=== PATIENT | female | born 1935 | race Caucasian/White ===

== ENCOUNTER → 2016-07-22 | Outpatient (REF) ==
[~2016-07-22] MED LIST: BUMETANIDE1 MG PO; CALCIUM1 CAP PO; CALTRATE-600 W600 MG PO; CENTRUM SILVER1 TA1 PO; CEPHALEXIN500 M1 PO; CLONAZEPAM1 M1 PO; COUMADIN 5MG5 MG/TAB PO; COUMADIN 6MG6 MG/TAB PO; COUMADIN4 MG; COUMADIN5 MG PO; COUMADIN6 MG PO; CYMBALTA 60MG60 MG PO; DARVOCET N; DIOVAN160 MG PO; DIOVAN320 MG PO; EVISTA; KLONOPIN 1MG1 MG PO; LABETALOL100 MG PO; LASIX 20MG TABL20 MG PO; LORTAB 5/500 501 TAB PO; MACROBID 1100 MG/CAP; MULTIPLE VITAMI1 CAP PO; NORCO 325 MG-51 TAB PO; NORVASC 5MG5 MG/TAB PO; PAXIL 30MG30 MG PO; RELAFEN 50500 MG/TAB PO; TOPROL XL50 MG PO; TYLENOL 325MG325 MG PO; TYLENOL EXTRA500 M1 PO; ULTRAM 50MG TAB50 MG PO; ULTRAM50 MG PO; VOLTAREN GEL 1%1 TU TP; VOLTAREN GEL1% TP
[2016-07-22 14:28] LABS: INR 2.5 (0.8-3.0); PROTHROMBIN TIME 28.2 SECONDS (9.7-12.8)
== END ==
LOC: ZLAB.STJ 14:16
PROVIDERS: Internal Medicine
DX: Z01.89 Encounter for other specified special examinations (principal)

== ENCOUNTER → 2017-01-02 | Outpatient (REF) ==
[2017-01-02 15:42] LABS: PH 5 (5-8); SQUAMOUS EPITHELIAL 0-2 /hpf; URINE APPEARANCE Hazy; URINE BACTERIA Rare /hpf; URINE BILIRUBIN Negative (NEGATIVE); URINE BLOOD Negative (NEGATIVE); URINE COLOR Yellow; URINE GLUCOSE Negative (NEGATIVE); URINE KETONE Negative (NEGATIVE); URINE UROBILINOGEN Negative (NEGATIVE)
[2017-01-02 15:43] LABS: URINE WBC >50 /hpf
== END ==
LOC: ZLAB.STJ 15:25
PROVIDERS: Internal Medicine
DX: Z01.89 Encounter for other specified special examinations (principal)

== ENCOUNTER → 2017-02-11 | Outpatient (REF) ==
[2017-02-11 17:12] LABS: HYALINE CAST >12 /lpf; PH 5 (5-8); SQUAMOUS EPITHELIAL 0-2 /hpf; URINE APPEARANCE Cloudy; URINE BACTERIA Rare /hpf; URINE BILIRUBIN Negative (NEGATIVE); URINE BLOOD Negative (NEGATIVE); URINE COLOR Yellow; URINE GLUCOSE Negative (NEGATIVE); URINE KETONE Negative (NEGATIVE); URINE UROBILINOGEN Negative (NEGATIVE)
[2017-02-11 17:23] LABS: URINE WBC >50 /hpf
== END ==
LOC: ZLAB.STJ 16:54
PROVIDERS: Internal Medicine
DX: Z02.89 Encounter for other administrative examinations (principal)

== ENCOUNTER → 2017-03-04 | Outpatient (REF) ==
[2017-03-04 14:23] LABS: PH 5 (5-8); SQUAMOUS EPITHELIAL None Seen /hpf; URINE APPEARANCE Hazy; URINE BACTERIA Rare /hpf; URINE BILIRUBIN Negative (NEGATIVE); URINE BLOOD Negative (NEGATIVE); URINE COLOR Yellow; URINE GLUCOSE Negative (NEGATIVE); URINE KETONE Negative (NEGATIVE); URINE RBC 0-2 /hpf; URINE UROBILINOGEN Negative (NEGATIVE)
== END ==
LOC: ZLAB.STJ 13:54
PROVIDERS: Internal Medicine
DX: Z02.89 Encounter for other administrative examinations (principal)

== ENCOUNTER → 2017-05-31 | Outpatient (REF) ==
[2017-05-31 14:30] LABS: HYALINE CAST >12 /lpf; MUCOUS Present /lpf; PH 5 (5-8); SQUAMOUS EPITHELIAL 0-2 /hpf; URINE APPEARANCE Cloudy; URINE BACTERIA Occasional /hpf; URINE BILIRUBIN Negative (NEGATIVE); URINE BLOOD Negative (NEGATIVE); URINE COLOR Amber; URINE GLUCOSE Negative (NEGATIVE); URINE KETONE Negative (NEGATIVE); URINE LEUKOCYTE ESTERASE 3+ (NEGATIVE); URINE PROTEIN(semi-quant) 1+ (NEGATIVE); URINE UROBILINOGEN Negative (NEGATIVE)
[2017-05-31 14:31] LABS: URINE WBC >50 /hpf
[2017-05-31 14:35] LABS: COLLECTION METHOD CLEAN CATCH
== END ==
LOC: ZLAB.STJ 14:18
PROVIDERS: Internal Medicine
DX: N39.0 Urinary tract infection, site not specified (principal)

== ENCOUNTER → 2017-06-12 | Outpatient (REF) ==
[2017-06-12 10:25] LABS: COLLECTION METHOD CLEAN CATCH
[2017-06-12 10:36] LABS: PH 6 (5-8); SQUAMOUS EPITHELIAL None Seen /hpf; URINE APPEARANCE Clear; URINE BACTERIA None Seen /hpf; URINE BILIRUBIN Negative (NEGATIVE); URINE BLOOD Negative (NEGATIVE); URINE COLOR Yellow; URINE GLUCOSE Negative (NEGATIVE); URINE KETONE Negative (NEGATIVE); URINE LEUKOCYTE ESTERASE Negative (NEGATIVE); URINE PROTEIN(semi-quant) Negative (NEGATIVE); URINE RBC 0-2 /hpf; URINE UROBILINOGEN Negative (NEGATIVE); URINE WBC 0-2 /hpf
== END ==
LOC: ZLAB.STJ 10:19
PROVIDERS: Internal Medicine
DX: Z01.89 Encounter for other specified special examinations (principal)

== ENCOUNTER → 2017-07-24 | Outpatient (REF) ==
[2017-07-24 14:28] LABS: COLLECTION METHOD CLEAN CATCH
[2017-07-24 14:56] LABS: PH 6 (5-8); SQUAMOUS EPITHELIAL None Seen /hpf; URINE APPEARANCE Hazy; URINE BACTERIA Rare /hpf; URINE BILIRUBIN Negative (NEGATIVE); URINE BLOOD Negative (NEGATIVE); URINE COLOR Yellow; URINE GLUCOSE Negative (NEGATIVE); URINE KETONE Negative (NEGATIVE); URINE LEUKOCYTE ESTERASE 3+ (NEGATIVE); URINE NITRATE Positive (NEGATIVE); URINE PROTEIN(semi-quant) Negative (NEGATIVE); URINE UROBILINOGEN Negative (NEGATIVE); URINE WBC >50 /hpf
== END ==
LOC: ZLAB.STJ 14:28
PROVIDERS: Internal Medicine
DX: N39.8 Other specified disorders of urinary system (principal)

== ENCOUNTER → 2017-08-19 | Outpatient (CLI) | payer MEDICARE, BC | LOC: COL.RAD 06:55 | DX: Z87.440 Personal history of urinary (tract) infections (principal) ==

== ENCOUNTER → 2018-10-06 | Outpatient (CLI) | payer MEDICARE, BC | LOC: COL.RAD 08:56 | DX: M41.86 Other forms of scoliosis, lumbar region (principal); M51.16 Intervertebral disc disorders with radiculopathy, lumbar region; M48.061 Spinal stenosis, lumbar region without neurogenic claudication ==

== ENCOUNTER → 2019-02-22 | Outpatient (CLI) | payer MEDICARE, BC ==
[2019-02-22 10:38] LABS: BASO # 0.1 (0.0-0.2); BASO % 1.4 % (0.0-2.0); EOS # 0.9 (0.0-0.7); EOS % 13.5 % (0-4.0); GRAN # 3.5 (1.4-6.5); GRAN % 54.8 % (42.2-75.2); HEMATOCRIT 44.4 % (37.0-47.0); HEMOGLOBIN 14.8 g/dl (12.5-16.0); LYMPH # 1.4 (1.2-3.4); LYMPH % 21.5 % (20.0-51.0); MEAN CELL VOLUME 91 fl (80.0-100.0); MEAN CORPUSCULAR HEMOGLOBIN 30 pg (27.0-31.0); MEAN CORPUSCULAR HGB CONC 33 g/dl (33.0-37.0); MEAN PLATELET VOLUME 10.1 fl (7.4-10.4); MONO # 0.5 (0.1-0.6); MONO % 8.5 % (1.7-9.3); PLATELET COUNT 226 K/mm3 (130-400); RED BLOOD COUNT 4.88 M/mm3 (4.10-5.30); REDCELL DISTRIBUTION WIDTH-CV 13.8 % (11.5-14.5)
[2019-02-22 11:01] LABS: ALBUMIN 4.5 gm/dL (3.5-5.0); BILIRUBIN,TOTAL 0.5 mg/dL (0.0-1.0); CALCIUM 9.2 mg/dL (8.4-10.2); CHOLESTEROL RISK RATIO 2.6; CREATININE, serum 0.86 (0.52-1.25); POTASSIUM 5.2 mmol/L (3.4-5.0); TOTAL PROTEIN 7.3 gm/dL (6.4-8.2)
[2019-02-22 11:31] LABS: THYROID STIMULATING HORMONE 2.25 uIU/mL (0.465-4.680)
== END ==
LOC: COL.LAB 10:23 → ZLAB.STJ 10:23
PROVIDERS: Internal Medicine
DX: I12.9 Hypertensive chronic kidney disease with stage 1 through stage 4 chronic kidney disease, or unspecified chronic kidney disease (principal); N18.9 Chronic kidney disease, unspecified; E78.5 Hyperlipidemia, unspecified; D64.9 Anemia, unspecified; E56.9 Vitamin deficiency, unspecified; E03.9 Hypothyroidism, unspecified

== ENCOUNTER → 2019-03-04 | Outpatient (CLI) | payer MEDICARE, BC | LOC: ZLAB.STJ 13:54 → ZCOL.LAB 13:54 | DX: E87.5 Hyperkalemia (principal) ==

== ENCOUNTER → 2019-10-18 | Outpatient (CLI) | payer MEDICARE, BC | LOC: ZCOL.LAB 17:43 | DX: N39.0 Urinary tract infection, site not specified (principal); R82.71 Bacteriuria ==

== ENCOUNTER → 2020-03-21 | Outpatient (CLI) | payer MEDICARE, BC ==
[2020-03-22 03:48] LABS: BASO # 0.1 (0.0-0.2); BASO % 1.4 % (0.0-2.0); EOS # 0.7 (0.0-0.7); EOS % 12.1 % (0-4.0); GRAN # 3.6 (1.4-6.5); GRAN % 60.6 % (42.2-75.2); HEMATOCRIT 38.8 % (37.0-47.0); HEMOGLOBIN 12.1 g/dl (12.5-16.0); LYMPH % 16.2 % (20.0-51.0); MEAN CELL VOLUME 97 fl (80.0-100.0); MEAN CORPUSCULAR HEMOGLOBIN 30 pg (27.0-31.0); MEAN CORPUSCULAR HGB CONC 31 g/dl (33.0-37.0); MEAN PLATELET VOLUME 10.5 fl (7.4-10.4); MONO # 0.6 (0.1-0.6); MONO % 9.5 % (1.7-9.3); PLATELET COUNT 219 K/mm3 (130-400); RED BLOOD COUNT 4.02 M/mm3 (4.10-5.30)
[2020-03-22 04:00] LABS: ALBUMIN 3.6 gm/dL (3.5-5.0); BILIRUBIN,TOTAL 0.4 mg/dL (0.0-1.0); CALCIUM 9.3 mg/dL (8.4-10.2); CREATININE, serum 1.16 (0.52-1.25); POTASSIUM 5.1 mmol/L (3.4-5.0)
[2020-03-22 04:30] LABS: THYROID STIMULATING HORMONE 1.67 uIU/mL (0.465-4.680)
== END ==
LOC: ZCOL.LAB 20:48
PROVIDERS: Internal Medicine
DX: Z13.29 Encounter for screening for other suspected endocrine disorder (principal); D64.9 Anemia, unspecified; I10 Essential (primary) hypertension; Z20.828 Contact with and (suspected) exposure to other viral communicable diseases

== ENCOUNTER → 2020-04-24 | Outpatient (CLI) | payer MEDICARE, BC | LOC: ZLAB.STJ 13:04 | DX: E87.5 Hyperkalemia (principal); I10 Essential (primary) hypertension ==

== ENCOUNTER 2021-04-13 17:36 | Inpatient (IN) | payer MEDICARE, BC ==
[~2021-04-13] VITALS: Ht 157.5 cm; Wt 72.6 kg
[~2021-04-13 17:36] MED LIST changes: +CALCIUM 600MG+D1 TAB PO; -CALCIUM1 CAP PO; -LABETALOL100 MG PO; -MULTIPLE VITAMI1 CAP PO; +MULTIPLE VITAMI1 TA5 PO; +NORMODYNE200 MG PO
[2021-04-13 17:51] LABS: COLLECTION METHOD CLEAN CATCH
[2021-04-13 18:06] LABS: MUCOUS Present /lpf; PH 5 (5-8); SQUAMOUS EPITHELIAL 0-2 /hpf; URINE APPEARANCE Cloudy; URINE BACTERIA Many /hpf; URINE BILIRUBIN Negative (NEGATIVE); URINE BLOOD 1+ (NEGATIVE); URINE COLOR Amber; URINE GLUCOSE Negative (NEGATIVE); URINE KETONE Trace (NEGATIVE); URINE LEUKOCYTE ESTERASE Trace (NEGATIVE); URINE NITRATE Negative (NEGATIVE); URINE PROTEIN(semi-quant) Negative (NEGATIVE)
[2021-04-13 18:09] LABS: BASO # 0.1 K/mm3 (0.0-0.2); BASO % 0.3 % (0.0-2.0); EOS % 0.1 % (0-4.0); GRAN # 12.8 K/mm3 (1.4-6.5); GRAN % 86.8 % (42.2-75.2); HEMOGLOBIN 11.1 g/dl (12.5-16.0); LYMPH # 0.9 K/mm3 (1.2-3.4); LYMPH % 6.4 % (20.0-51.0); MEAN CELL VOLUME 86 fl (80.0-100.0); MEAN CORPUSCULAR HEMOGLOBIN 28 pg (27.0-31.0); MEAN CORPUSCULAR HGB CONC 33 g/dl (33.0-37.0); MEAN PLATELET VOLUME 10.5 fl (7.4-10.4); MONO # 0.9 K/mm3 (0.1-0.6); MONO % 5.9 % (1.7-9.3); PLATELET COUNT 169 K/mm3 (130-400); RED BLOOD COUNT 3.93 M/mm3 (4.10-5.30)
[2021-04-13 18:14] LABS: HEMATOCRIT 33.6 % (37.0-47.0)
[2021-04-13 18:25] LABS: ALBUMIN 2.9 gm/dL (3.4-4.8); BILIRUBIN,TOTAL 0.5 mg/dL (0.2-1.2); CALCIUM 8.6 mg/dL (8.4-10.2); CREATININE, serum 2.22 mg/dL (0.57-1.11); TOTAL PROTEIN 5.8 gm/dL (6.2-8.1)
[2021-04-13 18:35] LABS: INR 8.9 (0.8-3.0); PROTHROMBIN TIME 100.4 SECONDS (9.7-12.8)
[2021-04-13 18:37] LABS: TROPONIN-I 0.081 ng/mL (0.00-0.033)
[2021-04-13] MEDS ORDERED: PRINIVIL40 MG PO (20:43)
[2021-04-13] MEDS ORDERED: NORVASC 5MG5 MG/TAB PO (20:44)
[2021-04-13] MEDS ORDERED: PEPCID 20MG TAB20 MG PO (20:44)
[2021-04-13 22:03] VITALS: BP 82/46; PULSE 75; TEMP 98.2
--- NOTE | 2021-04-13 23:42 | NUR ---
Pt. arrived to the floor at 2210. Pt. is A&OX3, assessment complete. INT to rt. ac patent, IV fluids infusing per orders. Pt. denies pain or other needs, call light within reach.
[2021-04-14] VITALS (7 sets, daily range): BP systolic 100–155; BP diastolic 34–67; PULSE 62–100; TEMP 97.9–98.4
[2021-04-14 08:02] LABS: BASO % 0.4 % (0.0-2.0); EOS # 0.1 K/mm3 (0.0-0.7); EOS % 1.2 % (0-4.0); GRAN % 83.8 % (42.2-75.2); LYMPH # 0.8 K/mm3 (1.2-3.4); LYMPH % 7.2 % (20.0-51.0); MEAN CELL VOLUME 86 fl (80.0-100.0); MEAN CORPUSCULAR HGB CONC 34 g/dl (33.0-37.0); MONO # 0.8 K/mm3 (0.1-0.6); PLATELET COUNT 150 K/mm3 (130-400); RED BLOOD COUNT 3.26 M/mm3 (4.10-5.30); REDCELL DISTRIBUTION WIDTH-CV 15.1 % (11.5-14.5)
[2021-04-14 08:05] LABS: HEMATOCRIT 28.1 % (37.0-47.0); HEMOGLOBIN 9.4 g/dl (12.5-16.0); MEAN CORPUSCULAR HEMOGLOBIN 29 pg (27.0-31.0)
[2021-04-14 08:07] LABS: INR 2.1 (0.8-3.0); PROTHROMBIN TIME 23.5 SECONDS (9.7-12.8)
[2021-04-14 08:27] LABS: CREATININE, serum 1.6 mg/dL (0.57-1.11); POTASSIUM 3.5 mmol/L (3.5-4.5)
--- NOTE | 2021-04-14 10:40 | NUR ---
PT ALERT, ORIENTED TO SELF, LOCATION, AND SITUATION. DISORIENTED TO TIME. PT HAS HEART MURMUR AUSCULTATED. PT HAS BILATERAL UPPER EXTREMITIY EDEMA, NON-PITTING. PT PULSES 2+ IN ALL EXTREMITIES. PT BASES DIMINISHED BILATERALLY, UPPER LOBES CLEAR TO AUSCULTATION. PT CALL LIGHT WITHIN REACH, NO OTHER NEEDS AT THIS TIME.
--- NOTE | 2021-04-14 10:42 | NUR ---
BECKIE MURPHY, BILLIARD TABLE MECHANIC AT [facility] CALLED FOR UPDATE ON PT. PH([phone]) STATES POINT OF CONTACT FOR DISCHARGE PLANNING.
--- NOTE | 2021-04-14 10:48 | NUR ---
NOTED SPO2 CHARTED AT 90%, RECHECKED AT THIS TIME. 94% ON ROOM AIR.
--- NOTE | 2021-04-14 14:20 | NUR ---
NOTIFIED CHARGE NURSE OF POTENTIAL IV INFILTRATION. CHARGE NURSE ASSESSED SITE AND REDRESSED, NO INFILTRATION NOTED AT THIS TIME.
--- NOTE | 2021-04-14 16:38 | NUR ---
DR. RAZA NOTIFIED FOR CONSULT. RECEIVED VERBAL INSTRUCTIONS FOR OUTPATIENT FOLLOW UP, NO FURTHER ORDERS RECEIVED.
--- NOTE | 2021-04-14 17:00 | NUR ---
Pt continuing on plan of care. Pt confusion noted this AM, resolved throughout shift to orientedx4. Pt neuro checks performed per orders, no significant changes noted through shift. Pt vital signs remained stable this shift. Pt able to call for needs. Pt ambulates to bathroom SBA with walker.
[2021-04-14 17:02] LABS: INR 1.3 (0.8-3.0); PROTHROMBIN TIME 14.3 SECONDS (9.7-12.8)
--- NOTE | 2021-04-14 20:30 | NUR ---
Pt. sitting up in bed at this time. Pt. is A&OX3, at this time. Shift assessment complete. INT to lt. wrist patent. Pt. denies pain or other needs, call light within reach.
[2021-04-15] VITALS (8 sets, daily range): BP systolic 95–174; BP diastolic 58–82; PULSE 78–100; TEMP 98.1–98.8
[2021-04-15 08:03] LABS: BASO # 0.1 K/mm3 (0.0-0.2); BASO % 0.8 % (0.0-2.0); EOS # 0.4 K/mm3 (0.0-0.7); GRAN # 4.2 K/mm3 (1.4-6.5); GRAN % 65.8 % (42.2-75.2); LYMPH # 0.9 K/mm3 (1.2-3.4); LYMPH % 14.4 % (20.0-51.0); MEAN CELL VOLUME 87 fl (80.0-100.0); MEAN CORPUSCULAR HGB CONC 33 g/dl (33.0-37.0); MONO # 0.7 K/mm3 (0.1-0.6); MONO % 11.4 % (1.7-9.3); PLATELET COUNT 160 K/mm3 (130-400); RED BLOOD COUNT 3.26 M/mm3 (4.10-5.30); REDCELL DISTRIBUTION WIDTH-CV 15.1 % (11.5-14.5)
[2021-04-15 08:09] LABS: HEMATOCRIT 28.5 % (37.0-47.0); HEMOGLOBIN 9.3 g/dl (12.5-16.0); MEAN CORPUSCULAR HEMOGLOBIN 29 pg (27.0-31.0)
[2021-04-15 08:11] LABS: INR 1.3 (0.8-3.0); PROTHROMBIN TIME 13.9 SECONDS (9.7-12.8)
[2021-04-15 08:20] LABS: ALBUMIN 2.5 gm/dL (3.4-4.8); CALCIUM 8.3 mg/dL (8.4-10.2); CREATININE, serum 0.86 mg/dL (0.57-1.11); MAGNESIUM 2.4 mg/dL (1.6-2.6); PHOSPHOROUS 2.2 mg/dL (2.3-4.7); POTASSIUM 3.7 mmol/L (3.5-4.5)
--- NOTE | 2021-04-15 08:30 | NUR ---
PT ALERT AND ORIENTED. PT LUNGS CLEAR TO AUSCULATION. PT HAS ACTIVE BOWEL SOUNDS, STATES "FEELING FULL." PT REPORTS NEEDING TO HAVE BOWEL MOVEMENT. PT DORSALIS PEDIS AND POSTERIOR TIBIAL PULSES 1+, CAP REFILL <3S. PT HAS BILATERAL LOWER EXTREMITY EDEMA, NON-PITTING AT THIS TIME. PT HAS HEART MURMUR PRESENT. PT AMBULATED TO CHAIR, UP FOR BREAKFAST.
--- NOTE | 2021-04-15 09:00 | NUR ---
NOTIFIED DR. FUNES OF INCREASED EDEMA NOTED IN PATIENT AND REQUEST HOME MEDICATION LASIX RESTARTED.
--- NOTE | 2021-04-15 09:56 | NUR ---
RECEIVED VERBAL VERIFICATION FROM PHARMACY TO GIVE IV AND PO LASIX PER DR. FUNES'S ORDERS.
--- NOTE | 2021-04-15 12:27 | NUR ---
NOTIFIED DR. FUNES OF GIVING LASIX ORALLY BEFORE HOLD ORDER PUT IN. RECEIVED INSTRUCTIONS TO MONITOR BLOOD PRESSURE, NO FURTHER ORDERS AT THIS TIME.
--- NOTE | 2021-04-15 13:41 | NUR ---
NOTIFIED DR. FUNES OF DECREASED BLOOD PRESSURE, NO ALTERATION IN LEVEL OF CONSCIOUSNESS NOTED BY THIS RN. RECEIVED INSTRUCTION TO RECHECK AND MONITOR AT THIS TIME. REQUESTED MIRALAX TO HELP PT HAVE BOWEL MOVEMENT.
--- NOTE | 2021-04-15 14:31 | NUR ---
RECHECKED BP, SBP BACK UP TO 151. PT VISITING WITH FAMILY.
--- NOTE | 2021-04-15 14:32 | NUR ---
PT LUNCH TRAY TAKEN BEFORE FOOD ASSESSMENT COULD BE DOCUMENTED.
--- NOTE | 2021-04-15 19:32 | NUR ---
Pt continuing on plan of care. Pt receiving IV abx for infection management. Pt neuro checks performed per orders, no significant changes noted. Pt able to sit up in chair for part of shift. Ambulated with walker and fall precautions observed. Pt call light within reach, able to call for needs. No significant changes noted in patient status this shift.
--- NOTE | 2021-04-15 20:00 | NUR ---
PT IN BED. IS ALERT AND ORIENTED X3. HAS INT TO LEFT AC. HAS SIGNIFICANT BRUISING TO RT ARM FROM UPPER ARM TO RT HAND. NO VAGINAL BLEEDING AT THIS TIME. LIDODERM PATCH ON LEFT KNEE. DENIES NEED FOR PAIN MEDS AT THIS TIME.
[2021-04-16] VITALS (16 sets, daily range): BP systolic 54–169; BP diastolic 31–75; PULSE 71–93; TEMP 98.1–99.4
--- NOTE | 2021-04-16 05:58 | NUR ---
UP TO BATHROOM WITH ONE ASSIST AND WALKER, GAIT STEADY. VOIDS AND BACK TO BED.
[2021-04-16 06:40] LABS: CALCIUM 8.2 mg/dL (8.4-10.2); CREATININE, serum 0.85 mg/dL (0.57-1.11); POTASSIUM 3.5 mmol/L (3.5-4.5)
[2021-04-16 07:54] LABS: INR 1.6 (0.8-3.0); PROTHROMBIN TIME 17.7 SECONDS (9.7-12.8)
--- NOTE | 2021-04-16 08:00 | NUR ---
PATIENT IS ORIENTED X2 WITH SOME OCCATIONAL CONFUSION NOTED. PATIENT HAS HX OF DEMENTIA AND LIVES AT [facility]. DNR STATUS. VSS. HEAD TO TOE ASSESSMENT COMPLETE, SEE CHARTING. AM MEDS GIVEN. BREAKFAST TRAY ORDERED. PATIENT TOLERATING AHA DIET WELL. LEFT AC IV TO INT. NO OTHER NEEDS AT THIS TIME. CALL LIGHT IN REACH. BED ALARM ON.
[2021-04-16] MEDS ORDERED: OMNICEF 300MG300 MG PO (09:14)
--- NOTE | 2021-04-16 09:16 | NUR ---
Patient resides at [facility]. Clinical updates faxed to Leonardo at [facility]
--- NOTE | 2021-04-16 09:55 | NUR ---
NURSING ENTER ROOM TO GIVE NEW ORDER. PATIENT APPEARED TO BE SLEEPING IN BEDSIDE CHAIR. PATIENT DID NOT AROUSE TO VERBAL STIMULI AND APPEARED VERY PALE. PATIENT BRIEFLY WOKE TO PHYSICAL STIMULI BUT DID NOT MAKE AN SENSE. HOSPITALIST TEAM NOTIFIED. VITALS NOTED HYPTENSION IN THE 70'S SYSTOLIC AND 30'S DYASTOLIC AFTER SEVERAL ATTEMPTS. PATIENT STARTED ON 500CC FLUID BOLUS. HOSPITALIST TEAM AT BEDSIDE. PATIENT MOVED BACK INTO BED, FLAT POSITION. B/P SLOWLY IMPROVING
--- NOTE | 2021-04-16 10:03 | NUR ---
Initial visit; Patient thanked Watchstander for looking in on her and offering God's blesings and for keeping her in Watchstander's prayers.
--- NOTE | 2021-04-16 10:20 | NUR ---
PATIENT B/P NOW HOWEVER, PATIENT IS HAVING LONG PERIODS OF APNEA. 02 SATS DROPPING INTO 80'S ON RA. APPLIED OXYGEN AT 3L PER NC, SATS NOW IMPROVED TO 96%. PATIENT STILL HAVING NOTABLE APNEA. HOSPITALIST TEAM NOTIED. RT AT BEDSIDE.
--- NOTE | 2021-04-16 10:35 | NUR ---
PATIENT GIVEN ROMAZICON. B/P IMPROVING SYSTOLICALLY. OXYGEN STABLE ON 3L
--- NOTE | 2021-04-16 10:45 | NUR ---
STARTING SECOND 500CC FLUIDS BOLUS. PATIENT WAKING TO VERBAL STIMULI BUT THEN FALLS BACK TO SLEEP. VITALS IMPROVING. B/P NOW 104/44. 02 AT 96% ON 3L. PHARMACY CAUGHT THAT HOME MEDICATION MED REC THAT WAS CONTINUED ON ADMISSION TO THE HOSPITAL IN ED WAS FROM 2019. HOSPITALIST TEAM NOTIFIED AND PHARMACY WORKING TO CORRECT ADMISSION ERROR. PATIENT HR REMAINS STABLE IN THE 70'S. WILL MONITOR. NURSE AT BEDSIDE. PATIENT WILL NOT PLAN TO DISCHARGE BACK TO [facility] TODAY PLANNED.
[2021-04-16 10:53] LABS: ARTERIAL BLD GAS O2 SATURATION 96.8 % (92-100); ARTERIAL BLD GAS TCO2 CT 17.7; ARTERIAL BLOOD GAS BASE EXCESS -6.7 (-2-2); ARTERIAL BLOOD GAS HCO3 16.8 meq/L (22-26); ARTERIAL BLOOD GAS PCO2 27.4 mmHg (35-45); ARTERIAL BLOOD GAS PO2 85.2 mmHg (80-100); ARTERIAL BLOOD GAS pH 7.41 (7.35-7.45)
--- NOTE | 2021-04-16 11:15 | NUR ---
PATIENT HAVING LONG PERIODS OF APNEA, SATS DROP INTO UPPER 80'S LOW 90'S ON 3L DURING APNIC EPISODE AND INCREASES TO 96-98% ON 3L WHEN PATIENT TAKES A BREATH. REPEATED ANOTHER DOSE OF ROMAZICON PER HOSPITALIST & PHARMACIST.
--- NOTE | 2021-04-16 12:37 | NUR ---
Branch Service Leader met with patient to discuss discharge planning. Patient lives at [facility] in their Assisted Living. Patient sees Dr. Mclain for primary care and has medications delivered to her by [facility]. Patient uses a rollator for ambulation and reports she is normally independent with ADLS. Patient did not think she has completed a DPOA-HC, but listed her son Scott (ph#[phone]) as her contact. Patient advised she would like to return to [place], however is open to going to [facility] for a skilled rehab stay. JOHN contacted Leonardo at [facility] who advised they are holding a bed for patient. JOHN attended clinical rounds and the team feels patient would benefit from SNF stay, however patient is not ready for discharge today. JOHN updated Leonardo. JOHN then contacted patient's son, Scott who would be agreeable for patient to discharge to [facility] SNF as long as patient is agreeable. Discharge Plan: [facility] SNF
--- NOTE | 2021-04-16 19:50 | NUR ---
Pt. sitting up in bed with son at bedside. Pt. is A&OX3, but a bif forgetful. INT to lt. ac patent. Pt. denies pain or other needs, call light within reach.
[2021-04-17] VITALS (13 sets, daily range): BP systolic 74–178; BP diastolic 32–96; PULSE 74–99; TEMP 97.8–98.5
[2021-04-17 06:44] LABS: MEAN CELL VOLUME 86 fl (80.0-100.0); MEAN CORPUSCULAR HGB CONC 33 g/dl (33.0-37.0); MEAN PLATELET VOLUME 10.3 fl (7.4-10.4); PLATELET COUNT 188 K/mm3 (130-400); RED BLOOD COUNT 3.39 M/mm3 (4.10-5.30); REDCELL DISTRIBUTION WIDTH-CV 15.1 % (11.5-14.5)
[2021-04-17 06:46] LABS: HEMATOCRIT 29.1 % (37.0-47.0); HEMOGLOBIN 9.6 g/dl (12.5-16.0); MEAN CORPUSCULAR HEMOGLOBIN 28 pg (27.0-31.0)
[2021-04-17 07:09] LABS: CALCIUM 8.1 mg/dL (8.4-10.2); CREATININE, serum 0.79 mg/dL (0.57-1.11); POTASSIUM 3.7 mmol/L (3.5-4.5)
[2021-04-17 07:30] LABS: BAND 8 % (0-10); BASOPHIL 1 % (0-2); EOSINOPHIL 14 % (0-4); LYMPHOCYTE 12 % (20.0-51.0); METAMYELOCYTE 2 % (0-0); NEUTROPHILS 52 % (42.0-75.2); OVALOCYTES 1+; PLATELET ESTIMATE NORMAL (NORMAL)
--- NOTE | 2021-04-17 08:00 | NUR ---
pt. is alert and oriented with some occasional confusion. pt. has a history of underlying confusion. head to toe assessment completed (see chart) and AM medications given. Miralax held this AM due to loose stool. pt. is eating breakfast and sitting up in her chair. states nothing else is needed. call light within reach.
[2021-04-17 08:18] LABS: INR 1.9 (0.8-3.0); PROTHROMBIN TIME 21.5 SECONDS (9.7-12.8)
--- NOTE | 2021-04-17 08:20 | NUR ---
Following AM Lorazepam dose, pt had an episode of hypotension/somnolence. IV fluid bolus was ordered and given. Pt. is progressing but still drowsy.
--- NOTE | 2021-04-17 14:19 | NUR ---
Patient is not ready for discharge today. JOHN contacted Leonardo at [facility] and faxed clinical updates. Discharge Plan: [facility] SNF
--- NOTE | 2021-04-17 21:00 | NUR ---
Pt. laying in bed at this time. Pt. is A&OX3 but forgetful at times. INT to lt. ac patent. Pt. denies pain or other needs, call light within reach.
[2021-04-18 03:51] VITALS: BP 156/68; PULSE 92; TEMP 98.7
[2021-04-18 06:36] LABS: MEAN CELL VOLUME 84 fl (80.0-100.0); MEAN CORPUSCULAR HGB CONC 34 g/dl (33.0-37.0); PLATELET COUNT 211 K/mm3 (130-400); RED BLOOD COUNT 3.21 M/mm3 (4.10-5.30); REDCELL DISTRIBUTION WIDTH-CV 14.9 % (11.5-14.5)
[2021-04-18 06:40] LABS: HEMOGLOBIN 9.1 g/dl (12.5-16.0); MEAN CORPUSCULAR HEMOGLOBIN 28 pg (27.0-31.0)
[2021-04-18 07:03] LABS: CALCIUM 8.3 mg/dL (8.4-10.2); CREATININE, serum 0.82 mg/dL (0.57-1.11)
[2021-04-18 07:35] VITALS: BP 160/72; PULSE 91; TEMP 98
--- NOTE | 2021-04-18 07:35 | NUR ---
Patient up to the bathroom this am. Walker & gaitbelt used. Steady on her feet. She is Alert & oriented. Wanting to rest. not ready for breakfast yet. Will monitor.
[2021-04-18 07:53] LABS: BAND 14 % (0-10); EOSINOPHIL 10 % (0-4); LYMPHOCYTE 13 % (20.0-51.0); METAMYELOCYTE 1 % (0-0); NEUTROPHILS 47 % (42.0-75.2); PLATELET ESTIMATE NORMAL (NORMAL)
[2021-04-18 07:59] LABS: INR 1.7 (0.8-3.0); PROTHROMBIN TIME 19.4 SECONDS (9.7-12.8)
--- NOTE | 2021-04-18 08:23 | NUR ---
(Late Entry) On 04/17/21 SW followed up with patient to review discharge plan. Patient states she does not want to go to SNF and would prefer to return [place]. SW advised that this was therapy and Hospitalist recommendation adn patient states that she does not feel she needs rehab. SW updated Hospitalist. Discharge Plan: [facility] [place] vs SNF
--- NOTE | 2021-04-18 10:15 | NUR ---
Follow-up; Patient states she is doing better. Cool Roofing Installer offered a Anderson and wished her well.
[2021-04-18 12:00] VITALS: BP 150/75; PULSE 82; TEMP 98.2
[2021-04-18 15:28] VITALS: BP 125/90; PULSE 94; TEMP 97.6
--- NOTE | 2021-04-18 15:43 | NUR ---
Patient sitting up in chair. She ambulate halls with therapy. She has tolerated meals. Blood pressure remains stable. Will continue to closely monitor.
--- NOTE | 2021-04-18 16:06 | NUR ---
Sulfonator Operator attended clinical rounds with the team and Hospitalist talked with patient about rehab. Patient is initially agreeable to a couple weeks at rehab, however when SW followed up with patient later in the afternoon, patient states she plans to return [place] apartment. Patient states she does not want to stay overnight on the rehab unit. JOHN updated Hospitalist on patient changing her mind and also updated Leonardo at [facility] on the above information. JOHN contacted patient's son, Scott who advised patient can be stubborn about these things. Discharge Plan: [facility] vs [place]
--- NOTE | 2021-04-18 16:47 | NUR ---
Patient up in chair . denies pains. Dinner ordered.
[2021-04-18 19:39] VITALS: BP 148/76; PULSE 94; TEMP 99.7
--- NOTE | 2021-04-18 20:45 | NUR ---
Pt. sitting up in bed. Pt. is A&OX3, assessment complete. INT to lt. ac patent. Pt. denies pain or other needs, call light within reach.
[2021-04-19 00:05] VITALS: BP 155/75; PULSE 92; TEMP 98.2
[2021-04-19 04:11] VITALS: BP 165/66; PULSE 90; TEMP 97.7
[2021-04-19 06:45] LABS: MEAN CELL VOLUME 85 fl (80.0-100.0); MEAN CORPUSCULAR HGB CONC 33 g/dl (33.0-37.0); MEAN PLATELET VOLUME 9.9 fl (7.4-10.4); PLATELET COUNT 238 K/mm3 (130-400); REDCELL DISTRIBUTION WIDTH-CV 14.8 % (11.5-14.5)
[2021-04-19 06:46] LABS: HEMATOCRIT 27.3 % (37.0-47.0); HEMOGLOBIN 9.1 g/dl (12.5-16.0); MEAN CORPUSCULAR HEMOGLOBIN 28 pg (27.0-31.0)
[2021-04-19 06:56] LABS: INR 1.7 (0.8-3.0); PROTHROMBIN TIME 18.6 SECONDS (9.7-12.8)
[2021-04-19 07:02] LABS: CREATININE, serum 0.83 mg/dL (0.57-1.11)
[2021-04-19 07:28] LABS: BAND 10 % (0-10); BASOPHIL 1 % (0-2); EOSINOPHIL 13 % (0-4); LYMPHOCYTE 16 % (20.0-51.0); NEUTROPHILS 49 % (42.0-75.2); NUCLEATED RED BLOOD CELL 1 (0-6); PLATELET ESTIMATE NORMAL (NORMAL)
[2021-04-19 07:37] VITALS: BP 147/72; PULSE 91; TEMP 98.5
--- NOTE | 2021-04-19 08:00 | NUR ---
PATIENT IS ORIENTED X2 BUT DISPLAYS OCCATIONAL FORGETFULNESS. PATIENT HAS HX OF DEMENTIA. VSS. DENIES PAIN OR NAUSEA. HEAD TO TOE ASSESSMENT COMPLETE. DNR STATUS. PATIENT IS EAT/DRINK/VOIDING SUFFICENT AMOUNTS. 1 ASSIST WITH WALKER. PT/OT CONSULTED. PLAN IS TO GO BACK TO [facility] LATER TODAY, SEE ORDERS.
[2021-04-19] MEDS ORDERED: TRANDATE 100MG100 MG PO (09:00)
--- NOTE | 2021-04-19 10:33 | NUR ---
Mechanical Fitter attended clinical rounds with the team and patient still declines SNF at this time. Patient states she wants to return to [place] [facility]. JOHN contacted Leonardo at [facility] and provided updates. JOHN faxed discharge orders which included Medicare PT B PT/OT to eval and treat. JOHN contacted patient's son, Scott who would prefer [facility] provide transportation. JOHN collaborated with Leonardo at [facility] to arrange a 1345 filler picker time. JOHN provided filler picker time to patient and patient's son, Scott. Discharge Plan: [place] [facility]
[2021-04-19 11:16] VITALS: BP 151/71; PULSE 88; TEMP 98.4
--- NOTE | 2021-04-19 14:00 | NUR ---
PATIENT DISCHARGING HOME VIA [facility]AN SERVICE BACK TO HER HOME IN [place]. DISCHARGE INFO PACKET GIVEN. PATIENT IS DRESSED, PACKED AND ESCORTED OUT. IV DC'D IN RIGHT FORARM AND COVERED WITH [employer]. PATIENT DISCHARGED WITH PERSONAL BELONGINGS.
== END 2021-04-19 14:00 | disposition home or self-care (01) | DRG 682 ==
LOC: COL.ER 17:36 → SURG 19:15
PROVIDERS: Emergency Medicine; Internal Medicine; Physician Assistant; Student in an Organized Health Care Education/Training Program; ADMIT Internal Medicine
DX: N17.9 Acute kidney failure, unspecified (principal); G92.9 Unspecified toxic encephalopathy; J96.01 Acute respiratory failure with hypoxia; N39.0 Urinary tract infection, site not specified; I95.2 Hypotension due to drugs; I10 Essential (primary) hypertension; F03.90 Unspecified dementia, unspecified severity, without behavioral disturbance, psychotic disturbance, mood disturbance, and anxiety; Z66 Do not resuscitate; E86.0 Dehydration; R79.1 Abnormal coagulation profile; G89.29 Other chronic pain; Z96.652 Presence of left artificial knee joint; K21.9 Gastro-esophageal reflux disease without esophagitis; N93.9 Abnormal uterine and vaginal bleeding, unspecified; B96.20 Unspecified Escherichia coli [E. coli] as the cause of diseases classified elsewhere; T42.4X5A Adverse effect of benzodiazepines, initial encounter; F41.9 Anxiety disorder, unspecified; I35.0 Nonrheumatic aortic (valve) stenosis; Z86.718 Personal history of other venous thrombosis and embolism; Z79.01 Long term (current) use of anticoagulants; Z23 Encounter for immunization
CPT/HCPCS: 99223-AI; 99232-AI; 99233-AI; 99239; J0696; J1940; J3430; J7030; J7040; J7120

== ENCOUNTER → 2021-05-24 | Outpatient (CLI) | payer MEDICARE, BC ==
[~2021-05-24] MED LIST changes: +OMNICEF 300MG300 MG PO; +PEPCID 20MG TAB20 MG PO; +PRINIVIL40 MG PO; +TRANDATE 100MG100 MG PO
[2021-05-24 16:23] LABS: BASO # 0.1 K/mm3 (0.0-0.2); BASO % 1.3 % (0.0-2.0); EOS # 0.7 K/mm3 (0.0-0.7); EOS % 10.8 % (0-4.0); GRAN # 4.5 K/mm3 (1.4-6.5); GRAN % 65.1 % (42.2-75.2); HEMOGLOBIN 10.2 g/dl (12.5-16.0); LYMPH % 15.1 % (20.0-51.0); MEAN CELL VOLUME 87 fl (80.0-100.0); MEAN CORPUSCULAR HEMOGLOBIN 27 pg (27.0-31.0); MEAN CORPUSCULAR HGB CONC 31 g/dl (33.0-37.0); MEAN PLATELET VOLUME 10.5 fl (7.4-10.4); MONO # 0.5 K/mm3 (0.1-0.6); MONO % 7.3 % (1.7-9.3); PLATELET COUNT 288 K/mm3 (130-400); RED BLOOD COUNT 3.74 M/mm3 (4.10-5.30)
[2021-05-24 16:24] LABS: HEMATOCRIT 32.5 % (37.0-47.0)
[2021-05-24 16:45] LABS: CALCIUM 9.2 mg/dL (8.4-10.2); CREATININE, serum 1.14 mg/dL (0.57-1.11); POTASSIUM 5.2 mmol/L (3.5-4.5)
== END ==
LOC: ZLAB.STJ 16:14
PROVIDERS: Internal Medicine
DX: I50.9 Heart failure, unspecified (principal); Z79.01 Long term (current) use of anticoagulants

== ENCOUNTER → 2021-11-08 | Outpatient (CLI) | payer MEDICARE, BC ==
[2021-11-08 11:50] LABS: HEMATOCRIT 35.2 % (37.0-47.0)
== END ==
LOC: ZLAB.STJ 10:35
PROVIDERS: Internal Medicine
DX: D50.9 Iron deficiency anemia, unspecified (principal)